=== PATIENT | female | born 1965 | race Caucasian/White ===

== ENCOUNTER → 2021-09-16 15:30 | Outpatient (BNVA) | payer OTHER, SELFPAY | PROVIDERS: Visit Provider Obstetrics & Gynecology | DX: Z01.419 Encounter for gynecological examination (general) (routine) without abnormal findings (principal) | CPT/HCPCS: 87624 ==

== ENCOUNTER → 2021-10-01 13:08 | Outpatient (BNVA) | payer OTHER, SELFPAY | PROVIDERS: Visit Provider Family Medicine | DX: Z00.00 Encounter for general adult medical examination without abnormal findings (principal) | CPT/HCPCS: 80053; 80061; 82306; 85025 ==

== ENCOUNTER 2025-01-05 13:45 | Emergency (ER) | payer SELFPAY ==
[2025-01-05 14:10] VITALS: BP 150/83; PULSE 57; RESP 16; O2SAT 98
[2025-01-05 14:16] VITALS: TEMP 36.7
--- NOTE | 2025-01-05 14:45 | W.ED.WOUNDLC ---
Documented by User: MARIANNE Sanford 01/05/25 16:04 HPI - Wound/Laceration General: Chief Complaint: Wound/Laceration Stated Complaint: Cut Left hand Time Seen by Provider: 01/05/25 14:16 Source: patient Mode of arrival: ambulatory Limitations: no limitations History of Present Illness: Patient is a 59-year-old female who presents the emergency department for a cut to left hand. States she was slicing an onion at work and cut herself with a kitchen knife. Bleeding controlled on arrival, with direct pressure. Wound is at the base of the left thumb, she has no neurovascular symptoms. Full range of motion. Reporting mild pain. Unknown last tetanus status. Onset (ago): minute(s) Extremity Location: Left: hand Place: work Patient tetanus UTD: No Context: accidental Associated symptoms: Denies chills, fever(s), nausea or vomiting Treatments prior to arrival: bandage Related Data Previous Rx's ?Medication ?Instructions ?Recorded cephalexin 500 mg capsule 500 mg PO Q6H 3 days #12 caps 01/05/25 Allergies Allergy/AdvReac Type Severity Reaction Status Date / Time No Known Allergies Allergy Verified 09/16/21 14:57 Review of Systems General: Reports: 10 or more systems reviewed and unremarkable except in HPI and below Const: Denies: fever(s) or chills Card: Denies: chest pain Resp: Denies: dyspnea GI: Denies: abdominal pain, nausea, vomiting or diarrhea Musc: Denies: extremity pain or joint pain Skin/Breast: Reports: new lesions (Laceration left thumb); Denies: rash, skin pain or skin tenderness Neuro: Denies: headache(s) PFSH ED PFSH: Medical History No pertinent past medical history neghx: htn, dm, thyroid, dct/pe PCP: none Surgical History No pertinent past surgical history Family History Father Heart disease Stroke Mother Hypercholesteremia Denies family history of Colon cancer Ovarian cancer Diabetes Breast cancer Hypertension Uterine cancer Thyroid disease Physical Exam Const: COMMON NORMALS: no acute distress, average body habitus, patient oriented x3, no limitations, healthy appearing, alert and well nourished HENMT: COMMON NORMALS: normocephalic and atraumatic HEAD & SCALP: normocephalic and atraumatic Neck/C-Spine: COMMON NORMALS: full ROM, no lymphadenopathy, supple and no meningeal signs Resp: COMMON NORMALS: normal respiratory effort, No use of accessory muscles and clear to auscultation bilaterally AUSCULTATION: clear to auscultation bilaterally Cardio: COMMON NORMALS: regular rate and regular rhythm RATE: regular rate RHYTHM: regular rhythm Extremity: COMMON NORMALS: full ROM and capillary refill normal Neuro: COMMON NORMALS: patient oriented x3 SENSORIUM/ORIENTATION: Yes alert MENINGEAL SIGNS: Yes no meningeal signs Skin: COMMON NORMALS: turgor normal NARRATIVE SKIN EXAM: 3 cm laceration to base of left thumb with no active bleeding. Superficial. No foreign body or contamination. GENERAL SKIN EXAM: turgor normal Procedures Laceration Laceration 1: Site: hand Side (If applicable): left Size (cm): 3 Description: linear and clean Depth: simple, single layer Local Anesthetic: lidocaine 2% and with epi Amount of anesthesia used (mL): 2 Pre-repair: wound explored and irrigated extensively Skin layer closed with: other (Prolene) Size (cm): 4-0 Number of sutures: 6 Technique: simple, interrupted Course Vital Signs: Vital signs: Vital Signs Temperature 98.1 F 01/05/25 14:16 Pulse Rate 57 L 01/05/25 14:10 Respiratory Rate 16 01/05/25 14:10 Blood Pressure 150/83 01/05/25 14:10 Pulse Oximetry 98 01/05/25 14:10 Oxygen Delivery Me thod Room Air 01/05/25 14:10 MDM - Wound/Laceration Medical Decision Making Patient presenting here after lacerating base of her left thumb while at work with a kitchen knife. She denied wanting her tetanus updated today. Neurovascular status is intact, is superficial and does not warrant any imaging. However did require procedural closure, please see the procedure note. It was irrigated thoroughly, and though prophylactic antibiotics were sent to pharmacy, patient was stating she was unlikely to take these. Overall she is stable for discharge following procedural repair, is dressed with sterile dressing and educated on how to care for the wound at home. She will have the sutures out in 10 days. No radiology studies performed this visit Discharge Plan Discharge Patient Disposition: Home Clinical Impression: Laceration of left thumb Qualifiers: Encounter type: initial encounter Damage to nail status: without damage Foreign body presence: without foreign body Qualified Code(s): S61.012A - Laceration without foreign body of left thumb without damage to nail, initial encounter Condition: Stable Prescriptions: New cephalexin 500 mg capsule 500 mg PO Q6H 3 Days Qty: 12 0RF Discharge Orders: Discharge ED (Routine); Ordered 01/05/25 Ordered By: Eulalio Ovalles Patient Instructions: Patient Portal & Richard Instructions Activity Restrictions/Additional Instructions: Thumb Laceration Discharge Care of Your Thumb Laceration - Wound Care: Keep the sterile dressing clean and dry for the first 24 hours. After 24 hours, you may gently wash the area with clean tap water and mild soap. Pat dry and reapply a clean, dry dressing. There is no need for antiseptic solutions; tap water is safe and effective for wound cleansing. - Suture Removal: Sutures on the hand should typically be removed in 10-14 days. Please schedule a follow-up appointment for suture removal within this timeframe. - Antibiotics: Take cephalexin as prescribed, four times daily for three days. Although routine antibiotics are not generally recommended for simple lacerations, they may be used in select cases based on individual risk factors. - Tetanus: You declined a tetanus booster. If you have not had a tetanus shot in the past 10 years, consider getting one soon, as it is recommended for wound care. - Activity: Avoid heavy use of the thumb and keep the area protected until sutures are removed. - Return Precautions: Seek medical attention promptly if you notice any of the following: - Increasing redness, swelling, warmth, or pain around the wound - Pus or foul-smelling drainage - Fever or chills - Red streaks spreading from the wound - Loss of movement or sensation in the thumb Follow-up: Please return for suture removal in 10-14 days or sooner if you have any concerns about infection or healing. If you have questions or concerns, contact your healthcare provider. Print Language: Bulgarian Coding Level of Care Code ED Scientific Programmer Analyst for [facility] Documented by User: Anderson Willett DO 01/05/25 16:30 HPI - Wound/Laceration General: Chief Complaint: Wound/Laceration Stated Complaint: Cut Left hand Time Seen by Provider: 01/05/25 14:16 Related Data Previous Rx's ?Medication ?Instructions ?Recorded cephalexin 500 mg capsule 500 mg PO Q6H 3 days #12 caps 01/05/25 Allergies Allergy/AdvReac Type Severity Reaction Status Date / Time No Known Allergies Allergy Verified 09/16/21 14:57 PFSH ED PFSH: Medical History No pertinent past medical history neghx: htn, dm, thyroid, dct/pe PCP: none Surgical History No pertinent past surgical history Family History Father Heart disease Stroke Mother Hypercholesteremia Denies family history of Colon cancer Ovarian cancer Diabetes Breast cancer Hypertension Uterine cancer Thyroid disease Course Vital Signs: Vital signs: Vital Signs Temperature 98.1 F 01/05/25 14:16 Pulse Rate 57 L 01/05/25 14:10 Respiratory Rate 16 01/05/25 14:10 Blood Pressure 150/83 01/05/25 14:10 Pulse Oximetry 98 01/05/25 14:10 Oxygen Delivery Me thod Room Air 01/05/25 14:10 MDM - Wound/Laceration Medical Decision Making Patient presenting here after lacerating base of her left thumb while at work with a kitchen knife. She denied wanting her tetanus updated today. Neurovascular status is intact, is superficial and does not warrant any imaging. However did require procedural closure, please see the procedure note. It was irrigated thoroughly, and though prophylactic antibiotics were sent to pharmacy, patient was stating she was unlikely to take these. Overall she is stable for discharge following procedural repair, is dressed with sterile dressing and educated on how to care for the wound at home. She will have the sutures out in 10 days. Chart reviewed Discharge Plan Discharge Patient Disposition: Home Clinical Impression: Laceration of left thumb Qualifiers: Encounter type: initial encounter Damage to nail status: without damage Foreign body presence: without foreign body Qualified Code(s): S61.012A - Laceration without foreign body of left thumb without damage to nail, initial encounter Condition: Stable Prescriptions: New cephalexin 500 mg capsule 500 mg PO Q6H 3 Days Qty: 12 0RF Discharge Orders: Discharge ED (Routine); Ordered 01/05/25 Ordered By: Eulalio Ovalles Patient Instructions: Patient Portal & Richard Instructions Activity Restrictions/Additional Instructions: Thumb Laceration Discharge Care of Your Thumb Laceration - Wound Care: Keep the sterile dressing clean and dry for the first 24 hours. After 24 hours, you may gently wash the area with clean tap water and mild soap. Pat dry and reapply a clean, dry dressing. There is no need for antiseptic solutions; tap water is safe and effective for wound cleansing. - Suture Removal: Sutures on the hand should typically be removed in 10-14 days. Please schedule a follow-up appointment for suture removal within this timeframe. - Antibiotics: Take cephalexin as prescribed, four times daily for three days. Although routine antibiotics are not generally recommended for simple lacerations, they may be used in select cases based on individual risk factors. - Tetanus: You declined a tetanus booster. If you have not had a tetanus shot in the past 10 years, consider getting one soon, as it is recommended for wound care. - Activity: Avoid heavy use of the thumb and keep the area protected until sutures are removed. - Return Precautions: Seek medical attention promptly if you notice any of the following: - Increasing redness, swelling, warmth, or pain around the wound - Pus or foul-smelling drainage - Fever or chills - Red streaks spreading from the wound - Loss of movement or sensation in the thumb Follow-up: Please return for suture removal in 10-14 days or sooner if you have any concerns about infection or healing. If you have questions or concerns, contact your healthcare provider. Print Language: Bulgarian Coding Level of Care Code ED Scientific Programmer Analyst for Randy Hernandez
[2025-01-05] MEDS: lidocaine-epi 2% 20 mL INJ INJECTION (15:12)
== END 2025-01-05 15:34 | disposition home or self-care (01) ==
PROVIDERS: Emergency Provider Physician Assistant
DX: S61.012A Laceration without foreign body of left thumb without damage to nail, initial encounter (principal); W26.0XXA Contact with knife, initial encounter
CPT/HCPCS: 12002; 90471; 90715; 99283; J9999